=== PATIENT | female | born 2000 | race African-American/Black ===

== ENCOUNTER 2022-05-22 20:15 | Inpatient (IN) | payer OTHER ==
[~2022-05-22] VITALS: Ht 165.1 cm; Wt 75.3 kg
[2022-05-22] MEDS ORDERED: METHYLERGONOVINE 0.2 MG/ML AMP IM PRN (20:40)
[2022-05-22] MEDS ORDERED: CARBOPROST 250 MCG/ML AMP IM PRN (20:40)
[2022-05-22] MEDS ORDERED: PNV1TABL5 PO (21:08)
[2022-05-22] MEDS ORDERED: CHOL500014 PO (21:08)
[2022-05-22] MEDS ORDERED: SLOMAG PO (21:08)
[2022-05-22 21:23] LABS: BASOPHILS % (AUTO) 0.3 % (0.0-2.0); EOSINOPHILS # (AUTO) 0.1 K/uL (0-0.4); EOSINOPHILS % (AUTO) 0.5 % (0.0-4.0); HEMATOCRIT 38.6 % (36-48); HEMOGLOBIN 12.6 g/dL (12.0-16.0); LYMPHOCYTES # (AUTO) 1.7 K/uL (2.5-16.5); LYMPHOCYTES % (AUTO) 13.5 % (20.5-51.1); MEAN CORPUSCULAR HEMOGLOBIN 24 pg (27-31); MEAN CORPUSCULAR HGB CONC 33 g/dL (33-37); MEAN CORPUSCULAR VOLUME 74.4 fL (80-94); MONOCYTES # (AUTO) 0.6 K/uL (0.8-1.0); MONOCYTES % (AUTO) 4.4 % (1.7-9.3); NEUTROPHILS # (AUTO) 10.4 K/uL (1.8-7.7); NEUTROPHILS % (AUTO) 81.3 % (42.2-75.2); PLATELET COUNT (AUTO) 125 K/uL (140-450); RED BLOOD CELL COUNT(AUTO) 5.18 MIL/uL (4.20-5.40); RED CELL DISTRIBUTION WIDTH 17.3 % (11.6-13.7); WHITE BLOOD COUNT (AUTO) 12.8 K/uL (4.5-11.0)
[2022-05-22 21:39] LABS: APPEARANCE,URINE CLEAR (CLEAR); BILIRUBIN,URINE NEGATIVE (NEGATIVE); BLOOD, URINE TRACE-I (NEGATIVE); COLOR,URINE YELLOW (YELLOW); LEUKOCYTE ESTERASE ,URINE NEGATIVE (NEGATIVE); NITRITE, URINE NEGATIVE (NEGATIVE); UGLUCOSE NEGATIVE (NEGATIVE)
[2022-05-22 21:44] LABS: ALBUMIN 3.1 g/dL (3.4-5.0); ANION GAP 13.7 (8-16); CARBON DIOXIDE 25.4 mmol/L (21-32); CREATININE 0.9 mg/dL (0.6-1.3); POTASSIUM 4.1 mmol/L (3.5-5.1); TOTAL BILIRUBIN 0.2 mg/dL (0.0-1.0); URIC ACID 3.5 mg/dL (2.6-7.2)
[2022-05-22 21:48] LABS: BARBITURATE, URINE NEGATIVE ng/ml (NEG <=200); BENZODIAZEPINE, URINE NEGATIVE ng/mL (NEG <=200); CANNABINOID, URINE NEGATIVE ng/mL (NEG <=50); COCAINE, URINE NEGATIVE ng/mL (NEG <=300); OPIATE, URINE NEGATIVE ng/mL (NEG <=2000); PHENCYCLIDINE SCREEN,URINE NEGATIVE ng/mL (NEG <=25)
[2022-05-22 21:59] LABS: PROTHROMBIN TIME 8.7 secs (10.8-13.4)
[2022-05-22] MEDS: LACTATED RINGERS 1,000 ML IV SCH (23:18)
[2022-05-23] MEDS: MISOPROSTOL 25 MCG TAB VG SCH ×2 (03:01→14:17)
[2022-05-23] MEDS ORDERED: MISOPROSTOL 25 MCG TAB VG SCH (06:00)
[2022-05-23] MEDS: LACTATED RINGERS 1,000 ML IV SCH (06:15)
[2022-05-23] MEDS ORDERED: MAG SULF 2000 MG/WATER PREMIX 100 ML IV SCH (06:50)
--- NOTE | 2022-05-23 09:14 | NUR ---
PATIENT HAS BEEN SCREENED AND CATEGORIZED LOW NUTRITION RISK. PATIENT WILL BE SEEN WITHIN 7 DAYS OF ADMISSION. 05/29/22 REVIEWED BY ROSS SCH[address]Z [address]
[2022-05-23] MEDS: MAG SULF 20 GM/H2O PREMIX DRIP 500 ML IV PRN ×2 (09:24→22:05)
[2022-05-23] MEDS ORDERED: ONDANSETRON 4 MG/2 ML VIAL IVP PRN (12:40)
[2022-05-23] MEDS ORDERED: MORPHINE SULFATE 5 MG/ML VIAL IVP PRN (12:40)
[2022-05-23] MEDS ORDERED: MORPHINE SULFATE 10 MG/ML VIAL ONE (12:40)
[2022-05-23] MEDS ORDERED: ROPIVACAINE 0.2%/NS PREMIX 200 ML EPI ONE (19:15)
[2022-05-23] MEDS ORDERED: fentaNYL citrate 0.05 MG/ML VIAL ONE (19:16)
[2022-05-24] MEDS ORDERED: NALBUPHINE 10 MG/ML AMP IVP PRN (03:30)
[2022-05-24] MEDS: LACTATED RINGERS 1,000 ML IV SCH ×2 (05:06→09:11)
[2022-05-24] MEDS ORDERED: OXYTOCIN 20 UNITS/LR PREMIX 1,000 ML IV ONE ×2 (07:38→12:00)
[2022-05-24] MEDS: MAG SULF 20 GM/H2O PREMIX DRIP 500 ML IV PRN (07:50)
[2022-05-24] MEDS ORDERED: ROPIVACAINE 0.2%/NS PREMIX 200 ML EPI ONE (09:23)
[2022-05-24] MEDS ORDERED: LABETALOL 20 MG/4 ML VIAL IVP ONE (10:08)
[2022-05-24] MEDS ORDERED: LABETALOL 20 MG/4 ML VIAL IVP SCH (10:20)
[2022-05-24] MEDS ORDERED: LABETALOL 20 MG/4 ML VIAL IVP PRN (10:25)
[2022-05-24] MEDS ORDERED: LIDOCAINE 1% 500 MG/50 ML VIAL ONE (13:27)
[2022-05-24] MEDS ORDERED: MORPHINE SULFATE 10 MG/ML VIAL ONE (14:21)
[2022-05-24 14:24] VITALS: BP 149/70
[2022-05-24] MEDS ORDERED: MORPHINE SULFATE 10 MG/ML VIAL IVP SCH (14:30)
[2022-05-24] MEDS ORDERED: LIDOCAINE 1% 500 MG/ 50 ML VIAL INJ ONE (16:55)
[2022-05-24] MEDS ORDERED: MEASLES, MUMPS, AND RUBELLA 1 VIAL SQVAC ONE (16:55)
[2022-05-24] MEDS ORDERED: oxyCODONE/APAP 5/325 MG 1 TAB TAB PO PRN (16:55)
[2022-05-24] MEDS ORDERED: IBUPROFEN 800 MG TAB PO PRN (16:55)
[2022-05-24] MEDS ORDERED: BENZOCAINE/MENTHOL 20%-0.5% 60 GM CAN TP PRN (16:55)
[2022-05-24] MEDS ORDERED: TEMAZEPAM 15 MG CAP PO PRN (16:55)
[2022-05-24] MEDS ORDERED: METHYLERGONOVINE 0.2 MG/ML AMP IM PRN (16:55)
[2022-05-24] MEDS ORDERED: MEASLES, MUMPS, AND RUBELLA 1 VIAL SQVAC PRN (17:10)
[2022-05-24] MEDS ORDERED: DOCUSATE SOD/SENNA 50/8.6 MG 1 TAB PO SCH (21:00)
[2022-05-25] MEDS: MAG SULF 20 GM/H2O PREMIX DRIP 500 ML IV PRN (05:14)
[2022-05-25 07:28] LABS: BASOPHILS % (AUTO) 0.2 % (0.0-2.0); EOSINOPHILS # (AUTO) 0.2 K/uL (0-0.4); EOSINOPHILS % (AUTO) 1.2 % (0.0-4.0); LYMPHOCYTES # (AUTO) 2.3 K/uL (2.5-16.5); LYMPHOCYTES % (AUTO) 14.3 % (20.5-51.1); MEAN CORPUSCULAR HEMOGLOBIN 25 pg (27-31); MEAN CORPUSCULAR HGB CONC 33 g/dL (33-37); MEAN CORPUSCULAR VOLUME 75.7 fL (80-94); MONOCYTES # (AUTO) 0.6 K/uL (0.8-1.0); MONOCYTES % (AUTO) 4.1 % (1.7-9.3); NEUTROPHILS # (AUTO) 12.6 K/uL (1.8-7.7); NEUTROPHILS % (AUTO) 80.2 % (42.2-75.2); PLATELET COUNT (AUTO) 113 K/uL (140-450); RED BLOOD CELL COUNT(AUTO) 2.61 MIL/uL (4.20-5.40); RED CELL DISTRIBUTION WIDTH 16.9 % (11.6-13.7); WHITE BLOOD COUNT (AUTO) 15.7 K/uL (4.5-11.0)
[2022-05-25 07:29] LABS: HEMATOCRIT 20.1 % (36-48)
[2022-05-25 07:37] LABS: HEMOGLOBIN 6.6 g/dL (12.0-16.0)
[2022-05-25 07:40] LABS: HEMATOCRIT 19.7 % (36-48); HEMOGLOBIN 6.4 g/dL (12.0-16.0)
[2022-05-25] MEDS: ACETAMINOPHEN EXTRA STRENGTH 500 MG TAB PO SCH (21:47)
[2022-05-25] MEDS: CLINDAMYCIN 900MG/D5W PM 50 ML IV SCH (22:51)
[2022-05-25] MEDS ORDERED: GENTAMICIN 80 MG/2 ML VIAL ONE (23:56)
[2022-05-26] MEDS ORDERED: GENTAMICIN 120 MG in DEXTROSE 5% 100 ML IV SCH ×2
[2022-05-26] MEDS ORDERED: GENTAMICIN PER PHARMACY MC SCH
[2022-05-26] MEDS: CLINDAMYCIN 900MG/D5W PM 50 ML IV SCH (05:26)
[2022-05-26] MEDS: ACETAMINOPHEN EXTRA STRENGTH 500 MG TAB PO SCH (05:28)
[2022-05-26 07:05] LABS: BASOPHILS # (AUTO) 0.1 K/uL (0.00-0.22); BASOPHILS % (AUTO) 0.4 % (0.0-2.0); EOSINOPHILS # (AUTO) 0.3 K/uL (0-0.4); EOSINOPHILS % (AUTO) 1.7 % (0.0-4.0); HEMATOCRIT 26.4 % (36-48); HEMOGLOBIN 8.8 g/dL (12.0-16.0); LYMPHOCYTES # (AUTO) 2.1 K/uL (2.5-16.5); LYMPHOCYTES % (AUTO) 14.1 % (20.5-51.1); MEAN CORPUSCULAR HEMOGLOBIN 27 pg (27-31); MEAN CORPUSCULAR HGB CONC 33 g/dL (33-37); MONOCYTES # (AUTO) 0.6 K/uL (0.8-1.0); MONOCYTES % (AUTO) 4.3 % (1.7-9.3); NEUTROPHILS % (AUTO) 79.5 % (42.2-75.2); PLATELET COUNT (AUTO) 134 K/uL (140-450); RED CELL DISTRIBUTION WIDTH 18.9 % (11.6-13.7); WHITE BLOOD COUNT (AUTO) 15.1 K/uL (4.5-11.0)
[2022-05-26] MEDS ORDERED: GENTAMICIN 80 MG in DEXTROSE 5% 98 ML IV SCH (13:00)
== END 2022-05-26 14:21 | disposition home or self-care (01) | DRG 806 ==
LOC: MLD 20:15 → MFCC 05-25 13:15
PROVIDERS: ADMIT Obstetrics & Gynecology; ATTEND Obstetrics & Gynecology
PROC: 10E0XZZ Delivery of Products of Conception, External Approach (ICD-10-PCS; principal; 2022-05-24)
PROC: 3E0DXGC Introduction of Other Therapeutic Substance into Mouth and Pharynx, External Approach (ICD-10-PCS; 2022-05-24)
PROC: 0HQ9XZZ Repair Perineum Skin, External Approach (ICD-10-PCS; 2022-05-24)
PROC: 3E0R3BZ Introduction of Anesthetic Agent into Spinal Canal, Percutaneous Approach (ICD-10-PCS; 2022-05-24)
PROC: 00HU33Z Insertion of Infusion Device into Spinal Canal, Percutaneous Approach (ICD-10-PCS; 2022-05-24)
PROC: 30233N1 Transfusion of Nonautologous Red Blood Cells into Peripheral Vein, Percutaneous Approach (ICD-10-PCS; 2022-05-25)
DX: O77.0 Labor and delivery complicated by meconium in amniotic fluid (principal); O72.1 Other immediate postpartum hemorrhage; Z37.0 Single live birth; O14.94 Unspecified pre-eclampsia, complicating childbirth; O36.5930 Maternal care for other known or suspected poor fetal growth, third trimester, not applicable or unspecified; Z83.3 Family history of diabetes mellitus; Z82.49 Family history of ischemic heart disease and other diseases of the circulatory system; O70.0 First degree perineal laceration during delivery; Z20.822 Contact with and (suspected) exposure to COVID-19; Z3A.38 38 weeks gestation of pregnancy
CPT/HCPCS: 36415; 76815; 80053; 80305; 81001; 82570; 84550; 85018; 85025; 85384; 85610; 85730; 86592; 86886; 86900; 86901; 86920; 87086; J1580; J2001; J2270; J2300; J2405; J2590; J2795; J3010; J3475; J3490; J7060; P9016; Q0092